=== PATIENT | female | born 1980 | race Caucasian/White ===

== ENCOUNTER → 2017-12-02 11:38 | Outpatient (CLI) | payer OTHER, SELFPAY ==
[2017-12-02 11:45] LABS: Mucous, Urine 0 SEEN /hpf (<or=2+); Red Blood Cells-Urine 0 SEEN /hpf (0-5); White Blood Cells 0 SEEN /hpf (0-5)
[2017-12-02 12:16] LABS: Absolute Lymphocyte Count 2.91 X10^3/ul (0.83-4.51); Absolute Neutrophil Count 4.6 X10^3/uL (2.0-7.7); Basophil# 0.02 X10^3/uL; Basophil% 0.2 % (0-1); Eosinophil# 0.11 X10^3/uL; Eosinophils% 1.3 % (0-5); Hematocrit 44.1 % (37-47); Lymphocyte # 2.91 X10^3/ul (4.0); Lymphocyte % 35.3 % (19-41); Mean Corpuscular Hgb 28.5 pg (27.0-32.0); Mean Corpuscular Volume 83.8 fL (81-99); Mean Platelet Vol. 9.5 fl (6.2-12.0); Monocyte# 0.59 X10^3/uL; Monocyte% 7.2 % (0-10); Neutrophil % 55.8 % (47-70); Platelet Count 288 K/mm3 (150-450); RBC Distribution Width CV 12.7 % (11.6-14.6); RBC Distribution Width SD 38.3 fl (35.1-43.9); Red Blood Count 5.26 M/mm3 (4.2-5.4); White Blood Count 8.3 K/mm3 (4.4-11.0)
[2017-12-02 12:17] LABS: POSITIVE COUNT NO; POSITIVE DIFFERENTIAL NO; POSITIVE MORPHOLOGY NO
[2017-12-02 12:20] LABS: Color, Urine Yellow (Yellow); Glucose, Dipstick Normal (Normal); Ketone-Dipstick Negative (Negative); Leukocyte Esterase-Dipstick 25 /ul (Negative); Nitrite-Dipstick Negative (Negative); Occult Blood-Urine Negative /ul (Negative); Protein-Dipstick Negative (Negative); Specific Gravity, Urine 1.005 (1.002-1.030); Urine Bilirubin Dipstick Negative (Negative); Urine Clarity Clear (Clear); Urine Urobilinogen Normal (Normal)
[2017-12-02 12:25] LABS: Squamous Epithelial Cells - UA 0-5 SEEN /hpf (5-10)
[2017-12-02 12:26] LABS: Bacteria 1+ /hpf (None Seen)
[2017-12-02 12:59] LABS: ALB/GLOB Ratio 0.8 RATIO (0.9-2.4); AST(SGOT) 24 U/L (15-37); Alanine Aminotransfer ALT/SGPT 61 U/L (13-56); Albumin, Serum 3.6 g/dL (3.2-5.0); Alkaline Phosphatase 56 U/L (45-117); Anion Gap 9 (5-15); BUN 14 mg/dL (7-18); BUN/Creat Ratio 18.7 RATIO (10-20); Calcium,Total 8.7 mg/dL (8.5-10.1); Chloride 103 mmol/L (98-107); Creatinine, Serum 0.75 mg/dL (0.55-1.02); EST Glomerular Filtration Rate 93 mL/min (>60); Est Glom Filt Rate - Afr Amer 113 mL/min (>60); Globulin 4.4 g/dL (2.2-4.2); Glucose 87 mg/dL (74-106); Potassium 3.6 mmol/L (3.5-5.1); Sodium Level 138 mmol/L (136-145); T4 Free Direct 1.16 ng/dL (0.76-1.46); Thyroid Stim Hormone (TSH) 1.08 uIU/mL (0.358-3.74)
[2017-12-03 11:55] LABS: T3 Total - Triiodothyronine 1.96 ng/mL (0.6-1.81)
== END ==
PROVIDERS: Family Provider Family Medicine; PCP Family Medicine; Visit Provider Family Medicine
DX: R53.83 Other fatigue (principal); R80.9 Proteinuria, unspecified
CPT/HCPCS: 36415; 80053; 81001; 84439; 84443; 84480; 85025

== ENCOUNTER → 2018-03-24 08:06 | Outpatient (CLI) | payer OTHER, SELFPAY ==
[2018-03-24 10:26] LABS: Free T3 2.7 pg/mL (2.18-3.98); T4 Free Direct 1.09 ng/dL (0.76-1.46); Thyroid Stim Hormone (TSH) 1.68 uIU/mL (0.358-3.74)
[2018-03-25 09:52] LABS: Vitamin B12 379 pg/mL (211-911)
[2018-03-25 11:19] LABS: Thyroid Peroxidase AB 288 IU/mL (0-34)
[2018-03-30 11:11] LABS: Vitamin D 1,25-Dihydroxy 28.8 pg/mL (19.9-79.3)
== END ==
PROVIDERS: Family Provider Family Medicine; PCP Family Medicine; Visit Provider Nurse Practitioner
DX: E07.9 Disorder of thyroid, unspecified (principal); R53.81 Other malaise; R53.83 Other fatigue
CPT/HCPCS: 36415; 82607; 82652; 84439; 84443; 84481; 86376

== ENCOUNTER 2018-03-29 14:30 | Outpatient (RCR) | payer OTHER, SELFPAY | END 2018-03-29 23:59 | LOC: NS 14:30 | PROVIDERS: Family Provider Family Medicine; PCP Family Medicine; Visit Provider Family Medicine | DX: E66.9 Obesity, unspecified (principal); Z68.39 Body mass index [BMI] 39.0-39.9, adult; Z71.3 Dietary counseling and surveillance | CPT/HCPCS: 97802; 97803 ==

== ENCOUNTER 2018-04-25 08:12 | Outpatient (RCR) | payer OTHER, SELFPAY | END 2018-04-29 23:59 | LOC: NS 08:12 | PROVIDERS: Family Provider Family Medicine; PCP Family Medicine; Visit Provider Family Medicine | DX: E66.9 Obesity, unspecified (principal); Z68.39 Body mass index [BMI] 39.0-39.9, adult; Z71.3 Dietary counseling and surveillance | CPT/HCPCS: 97803 ==

== ENCOUNTER 2018-06-20 11:27 | Outpatient (RCR) | payer OTHER, SELFPAY | END 2018-06-29 23:59 | LOC: NS 11:27 | PROVIDERS: Family Provider Family Medicine; PCP Family Medicine; Visit Provider Family Medicine | DX: E66.9 Obesity, unspecified (principal); Z68.39 Body mass index [BMI] 39.0-39.9, adult; Z71.3 Dietary counseling and surveillance | CPT/HCPCS: 97803 ==

== ENCOUNTER 2018-09-28 08:35 | Outpatient (RCR) | payer OTHER, SELFPAY | END 2018-09-28 23:59 | disposition home or self-care (01) | LOC: NS 08:35 | PROVIDERS: Family Provider Family Medicine; PCP Family Medicine; Visit Provider Family Medicine | DX: E66.9 Obesity, unspecified (principal); Z68.39 Body mass index [BMI] 39.0-39.9, adult; Z71.3 Dietary counseling and surveillance | CPT/HCPCS: 97803 ==

== ENCOUNTER → 2019-04-14 08:13 | Outpatient (CLI) | payer OTHER, SELFPAY ==
[2019-04-14 07:43] VITALS: BMI 42.4
[2019-04-14 12:34] LABS: Hematocrit 44.1 % (37-47); Hemoglobin 14.7 g/dL (12.0-15.0); Mean Corp Hgb Conc 33.3 g/dL (32-36); Mean Corpuscular Hgb 28.7 pg (27.0-32.0); Mean Corpuscular Volume 86.1 fL (81-99); Mean Platelet Vol. 10.1 fl (6.2-12.0); Platelet Count 370 K/mm3 (150-450); RBC Distribution Width CV 12.6 % (11.6-14.6); RBC Distribution Width SD 39.6 fl (35.1-43.9); Red Blood Count 5.12 M/mm3 (4.2-5.4); White Blood Count 8.3 K/mm3 (4.4-11.0)
[2019-04-14 12:35] LABS: Color, Urine Yellow (Yellow); Glucose, Dipstick Normal (Normal); Ketone-Dipstick Negative (Negative); Leukocyte Esterase-Dipstick Negative /ul (Negative); Nitrite-Dipstick Negative (Negative); Occult Blood-Urine Negative /ul (Negative); Protein-Dipstick Negative (Negative); Specific Gravity, Urine 1.005 (1.002-1.030); Urine Bilirubin Dipstick Negative (Negative); Urine Clarity Sl. Cloudy (Clear); Urine Urobilinogen Normal (Normal)
[2019-04-14 12:44] LABS: Bacteria 0 SEEN /hpf (None Seen); Mucous, Urine 0 SEEN /hpf (<or=2+); Red Blood Cells-Urine 0 SEEN /hpf (0-5); Squamous Epithelial Cells - UA 0-5 SEEN /hpf (5-10)
[2019-04-14 12:45] LABS: White Blood Cells 0 SEEN /hpf (0-5)
[2019-04-14 12:52] LABS: Hemoglobin A1c 5.2 % (4.2-6.3)
[2019-04-14 12:58] LABS: ALB/GLOB Ratio 0.9 RATIO (0.9-2.4); AST(SGOT) 16 U/L (15-37); Alanine Aminotransfer ALT/SGPT 53 U/L (13-56); Albumin, Serum 3.7 g/dL (3.2-5.0); Alkaline Phosphatase 53 U/L (45-117); Anion Gap 7 (5-15); BUN 12 mg/dL (7-18); BUN/Creat Ratio 15.3 RATIO (10-20); Chloride 107 mmol/L (98-107); Cholesterol 171 mg/dL (200); Creatinine, Serum 0.78 mg/dL (0.55-1.02); EST Glomerular Filtration Rate 88 mL/min (>60); Est Glom Filt Rate - Afr Amer 107 mL/min (>60); Globulin 4.3 g/dL (2.2-4.2); Glucose 98 mg/dL (74-106); High Density Lipoprotein 45 mg/dL; Potassium 4.1 mmol/L (3.5-5.1); Sodium Level 137 mmol/L (136-145); T4 Free Direct 1.28 ng/dL (0.76-1.46); Thyroid Stim Hormone (TSH) 1.82 uIU/mL (0.358-3.74); Triglycerides 147 mg/dL; Very Low Density Lipoprotein 29 mg/dL (5-40)
[2019-04-17 14:07] LABS: Thyroid Peroxidase AB 181 IU/mL (0-34)
[2019-04-18 08:40] LABS: Thyroglobulin Antibody < 1.0 IU/mL (0.0-0.9)
== END ==
PROVIDERS: Family Provider Family Medicine; PCP Family Medicine; Visit Provider Nurse Practitioner Family
DX: E07.9 Disorder of thyroid, unspecified (principal); E55.9 Vitamin D deficiency, unspecified
CPT/HCPCS: 36415; 80053; 80061; 81001; 82306; 83036; 84439; 84443; 85027; 86376; 86800

== ENCOUNTER → 2019-07-04 15:18 | Outpatient (CLI) | payer OTHER, SELFPAY ==
[2019-07-04 14:09] VITALS: BMI 42.4
[2019-07-04 19:19] LABS: Chlamydia Trachomatis by PCR Negative (Negative); Neisserai gonorrhoeae by PCR Negative (Negative); Probe Check PASS; Sample Adequacy Control PASS; Specimen Processing Control PASS
[2019-07-10 17:57] LABS: HPV APTIMA, High Risk Negative (Negative)
== END ==
PROVIDERS: Family Provider Family Medicine; PCP Family Medicine; Visit Provider Nurse Practitioner Women's Health
DX: Z12.4 Encounter for screening for malignant neoplasm of cervix (principal); Z11.3 Encounter for screening for infections with a predominantly sexual mode of transmission
CPT/HCPCS: 87491; 87591; 87624; 88175; G0145

== ENCOUNTER 2019-11-13 12:51 | Outpatient (RCR) | payer OTHER, SELFPAY ==
[2019-10-10 10:16] VITALS: BMI 42.4
[2019-10-25 10:15] VITALS: BMI 41.5
--- NOTE | 2019-11-13 14:15 | MASS.EVAL_ITS ---
Massage Therapy Evaluation: INITIAL EVALUATION /DATE:11/13/2019 PT NAME; RAJAT LAZAR : 1980 V#: [id number] REFERRING PHYS: DR. 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 MABRY. DR. MABRY DIAGNOSED HER WITH CERVICALALGIA MUSCLE SPASMS. SHE PRESENTS TODAY WITH SYMPTOMS OF A KNOT ON HER RIGHT SIDE NECK AND MUSCLE STRAIN IN RIGHT SHOULDER WITH ANY WEIGHT BARRING. THE PATIENT REPORTS THAT THE LUMP OF HER NECK HAS BEEN THERE FOR A FEW MONTHS BUT WITH NO PAIN. SHE RATES HER OVERALL HEALTH TO BE IN GOOD CONDITION WITH NO LIMITATIONS IN HER DAILY ACTIVITIES. OBJECTIVE: THE FIRST TREATMENT CONSISTED OF A MODERATE - DEEP TISSUE UPPER BODY MASSAGE. I FOCUSED ON THE ANTERIOR AND POSTERIOR OF THE NECK, TRAPEZIUM, LEVATOR, PECTORALIS, DELTOID, BICEP, RHOMBOIDS, PARASPINALS, AND LOW BACK. TRIGGER POINT THERAPY AND MONGOLIAN MASSAGE WERE PERFORMED. ASSESSMENT: THE PATIENTS MUSCLE TENSION AND ROPINESS WAS VERY HIGH. THE PATIENTS OVERALL STRESS LEVEL SEEMED LOW BESIDES WORKING ALOT OF HOURS. I FELT THE MAIN MUSCLE ISSUES WERE THE RIGHT LATERAL SCALENE, UPPER TRAP, RHOMBOIDS, AND UPPER ARM. THE PATIENT RELAXED WELL AND I FELT OVERALL THERE WAS GOOD RELEASE. I FEEL AT THIS TIME THE PATIENT IS A GOOD CANDIDATE FOR MASSOTHERAPY AT THIS TIME. PLAN: THE PLAN OF CARE WAS REVIEWED WITH THE PATIENT. THE PATIENT IS TO BE SEEN ON A REGULAR BASIS FOR A ONE HOUR SESSIONS OF MASSOTHERAPY.
--- NOTE | 2020-08-08 09:03 | MASS.DISCH ---
Massage Therapy Discharge Summary: DATE: 08/08/20 PT NAME: RAJAT LAZAR V#: [id number] : [birth year] REF PHYS: MABRY THE PATIENT WAS SEEN FOR A MASSOTHERAPY EVALUATION ON 11/13/19 WITH A DIAGNOSIS OF RIGHT ARM TENDONITIS. THE PATIENT WAS SEEN FOR ONE SESSION OF MASSAGE CONSISTING OF A UPPER BODY DEEP TISSUE MASSAGE. THE GOALS OF TREATMENT IS UNCERTAIN IF WERE MET. AT THIS TIME I AM DISCHARGING THE PATIENT FROM OUR CARE AT THE [facility]. AMITA SAMAYOA LMT
== END 2019-11-13 19:00 | disposition home or self-care (01) ==
LOC: MASS 12:51
PROVIDERS: PCP Family Medicine; Referring Provider Nurse Practitioner Family; Visit Provider Nurse Practitioner Family
DX: M62.838 Other muscle spasm (principal); M54.2 Cervicalgia
CPT/HCPCS: 97124

== ENCOUNTER → 2020-02-07 13:58 | Outpatient (CLI) | payer OTHER, SELFPAY ==
[2020-02-07 13:32] VITALS: BMI 41.5
[2020-02-07 15:34] LABS: Absolute Lymphocyte Count 2.79 X10^3/uL (0.83-4.51); Absolute Neutrophil Count 3.9 X10^3/uL (2.0-7.7); Basophil# 0.04 X10^3/uL; Basophil% 0.5 % (0-1); Eosinophil# 0.13 X10^3/uL; Eosinophils% 1.8 % (0-5); Hematocrit 41.5 % (37-47); Hemoglobin 13.9 g/dL (12.0-15.0); Lymphocyte # 2.79 X10^3/ul (4.0); Lymphocyte % 38.1 % (19-41); Mean Corp Hgb Conc 33.5 g/dL (32-36); Mean Corpuscular Hgb 28.4 pg (27.0-32.0); Mean Corpuscular Volume 84.9 fL (81-99); Mean Platelet Vol. 10.3 fl (6.2-12.0); Monocyte# 0.47 X10^3/uL; Monocyte% 6.4 % (0-10); NRBC Flagged by Analyzer 0 % (0-5); Neutrophil # 3.88 X10^3/uL (2.7-7.7); Neutrophil % 52.9 % (47-70); Platelet Count 315 K/mm3 (150-450); RBC Distribution Width CV 13.1 % (11.6-14.6); Red Blood Count 4.89 M/mm3 (4.2-5.4); White Blood Count 7.3 K/mm3 (4.4-11.0)
[2020-02-07 15:49] LABS: Free T3 2.7 pg/mL (2.18-3.98); T4 Free Direct 1.15 ng/dL (0.76-1.46); Thyroid Stim Hormone (TSH) 1.69 uIU/mL (0.358-3.74)
[2020-02-09 14:08] LABS: Thyroid Peroxidase AB 235 IU/mL (0-34)
[2020-02-10 11:30] LABS: Thyroglobulin Antibody < 1.0 IU/mL (0.0-0.9)
== END ==
PROVIDERS: PCP Family Medicine; Referring Provider Nurse Practitioner Family; Visit Provider Nurse Practitioner Family
DX: E07.9 Disorder of thyroid, unspecified (principal); R63.4 Abnormal weight loss
CPT/HCPCS: 36415; 84439; 84443; 84481; 85025; 86376; 86800

== ENCOUNTER 2020-03-15 08:00 | Outpatient (RCR) | payer OTHER, SELFPAY ==
[2019-10-10 10:16] VITALS: BMI 42.4
--- NOTE | 2019-10-17 10:08 | HP.PTEVAL ---
Patient's Visit Information RAJAT LAZAR is a 39 year old F referred to Physical Therapy by [facility] BryanC with a diagnosis of CERVICALALGIA,MUSCLE SPASMS. Date of Evaluation: 10/17/19 Physical Therapist: Tejinder Henry, PT, Cert MDT, OCS - Visit Plan Frequency: 2x /Week Duration: 4 Weeks Plan: PT INTERVENTIONS WITH MODALTIES BICEP TENDON,POSTURAL EX'S AND CERVICAL,SHOULDER STRENGTHENING - Subjective Findings: This 39 y/o female presents to physical therapy with cervicalagia.Patient noticed right shoulder pain 6 mnths ago , noticed lump in side of neck. Patient noticed pain right deltoid . Described strain. Aggravting factors pushing/pulling/lifting . Alleviating factors rest. Occassional parathesia in hands. Patient able to sleep good at night. Denies DENNEY/dizziness/nausea. Seen DR sumi staton. Patient symptoms affects ADL'S ,job demands ,and housework . Patient pain affects QOL and function. 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 NEURO: denies parathesia/tingling ,reflexes C5-6-7 3/3. PALAPTION: tender long head bicep,tender base of occiput. AROM: BUE WNL. MMT: BUE RTC 4/5 ,deltoid 4/5 no pain ,long head 4-/5 pain. CERVICAL ROM: flexion WFL,EXTENSION WFL,lateral flexion /rotaion/retraction WFL - Special Tests C/S Radiculapathy - Left Upper limb tension test: Negative C/S Radiculapathy - Right Upper limb tension test: Negative C/S Radiculapathy - Left Spurlings: Negative C/S Radiculapathy - Right Spurlings: Negative C/S Radiculapathy - Left Cervical distraction: Negative C/S Radiculapathy - Right Cervical distraction: Negative C/S Radiculapathy - Left Relief test: Negative C/S Radiculapathy - Right Relief test: Negative C/S Radiculapathy - Valsalva: Negative Sharp Vinod: Negative Vertebral Artery Test: Negative Alar Ligament Test: Negative Cervical Sitting: Protrusion - Mechanical Response: No effect Cervical Sitting: Protrusion - Symptoms During Testing: No effect Cervical Sitting: Protrusion - Symptoms After Testing: No effect Cervical Sitting: Retraction - Mechanical Response: No effect Cervical Sitting: Retraction - Symptoms During Testing: No effect Cervical Sitting: Retraction - Symptoms After Testing: No effect Cervical Sitting: Retraction-Extension - Mechanical Response: No effect Cerv Sitting: Retraction-Extension - Symptoms During Testing: No effect Cerv Sitting: Retraction-Extension - Symptoms After Testing: No effect Cervical Sitting: Sidebend Right - Mechanical Response: No effect Cervical Sitting: Sidebend Right - Symptoms During Testing: No effect Cervical Sitting: Sidebend Right - Symptoms After Testing: No effect Cervical Sitting: Sidebend Left - Mechanical Response: No effect Cervical Sitting: Sidebend Left - Symptoms During Testing: No effect Cervical Sitting: Sidebend Left - Symptoms After Testing: No effect Cervical Sitting: Rotation Right - Mechanical Response: No effect Cervical Sitting: Rotation Right - Symptoms During Testing: No effect Cervical Sitting: Rotation Right - Symptoms After Testing: No effect Cervical Sitting: Rotation Left - Mechanical Response: No effect Cervical Sitting: Rotation Left - Symptoms During Testing: No effect Cervical Sitting: Rotation Left - Symptoms After Testing: No effect Cervical Sitting: Flexion - Mechanical Response: No effect Cervical Sitting: Flexion - Symptoms During Testing: No effect R Shoulder Drop Sign - IS Test: Positive R Shoulder Empty Can - SS: Positive R Shoulder Belly Press - SupScap: Positive R Shoulder Neer - Impingement: Positive R Shoulder L[place]ig[place] Biju - Impingement: Positive - Goals Goal 1:: Indepoendant with HEP Goal Time Frame: 4-6 Weeks Goal 2:: Patient to improve posture for ADLS' Goal Time Frame: 4-6 Weeks Goal 3:: Patient to decrease pain in right shoulder bicep tendon by 60% or > to improve function. Goal Time Frame: 4-6 Weeks Goal 4:: Patient to improve ability with ADLS' and job demands without pain Goal Time Frame: 4-6 Weeks Goal 5:: Patient to improve quick dash by 5 points or > to improve QOL. Goal Time Frame: 4-6 Weeks - Rehabilitation Potential Physical Therapy Diagnosis: This patient has possible long head bicepital tendonitis wit pain wit testing,palaptopn .+ speeds test along with posture deficits ,appears shoulder pain not associated with neck pain Rehabilitation Potential: Good - Anticipated Interventions Patient/Client Instruction: Educate patient on: Condition, Plan of Care For the Purpose of:: To decrease pain, To increase ROM, To improve muscle performance and motor function, To improve ability to perform ADL's, To increase tolerance to activity/condition/position, To improve ability of physical actions for home/community/work/leisure, To improve health of tissue, To decrease soft tissue restriction, To reduce risk of recurrence, To improve ability to perform tasks related to life management Therapeutic Exercise to Include: Strength training, Postural training, Flexibilty training, Active ROM, Scapular Strength/Stabilization Comment: RTC/SHOULDER Thank you for the opportunity to evaluate your patient. For Medicare and Medicare HMO plans, please review the plan of care and approve it. It will need to be FAXED BACK to us at [phone] for Medicare purposes. For Medicare only, by signing this I certify the plan of care. Please let me know if there are questions or concerns regarding this plan of care. Physician Signature: Date:
--- NOTE | 2020-03-15 09:24 | HP.PTDCSUM_ITS ---
It has been my pleasure to treat RAJAT LAZAR referred by KATLIN Bryan, with the diagnosis of CERVICALALGIA,MUSCLE SPASMS for a total of 28 visit(s). Discharge Date: 03/15/20 Please see the following information for a summary of their discharge status. Subjective: Doing well .. Return to all ADLS' without pain and work demands Right Shoulder Pain Intensity (Out of 10): 0 % Improvement: 30 Objective/Function: AROM: WFL. MMT: RTC 5/5,DELTOID 4/5,SCAPULAR 4/5. -IMPINGE MENT Goal 1:: Indepoendant with HEP Goal Progress: Goal Met Goal 2:: Patient to improve posture for ADLS' Goal Progress: Goal Met Goal 3:: Patient to decrease pain in right shoulder bicep tendon by 60% or > to improve function. Goal Progress: Goal Met Goal 4:: Patient to improve ability with ADLS' and job demands without pain Goal Progress: Goal Met Goal 5:: Patient to improve quick dash by 5 points or > to improve QOL. Goal Progress: Goal Met Plan: D/C TO HEP Discharge Comments: [facility] If there are questions or concerns regarding this patient's physical therapy, please feel free to call me at [phone]. Thank you for the referral of this patient. Sincerely, Tejinder Henry PT, Cert MDT, OCS
== END 2020-03-15 19:00 | disposition home or self-care (01) ==
LOC: PT 08:00
PROVIDERS: PCP Family Medicine; Referring Provider Nurse Practitioner Family; Visit Provider Nurse Practitioner Family
DX: M62.838 Other muscle spasm (principal); M54.2 Cervicalgia
CPT/HCPCS: 97014; 97035; 97110; 97161; G0283

== ENCOUNTER → 2020-03-26 14:57 | Outpatient (CLI) | payer OTHER, SELFPAY ==
[2020-03-26 14:20] VITALS: BMI 41.5
[2020-03-26 17:02] LABS: Color, Urine Yellow (Yellow); Glucose, Dipstick Normal (Normal); Ketone-Dipstick 5 mg/dl (Negative); Leukocyte Esterase-Dipstick 25 /ul (Negative); Nitrite-Dipstick Negative (Negative); Occult Blood-Urine Negative /ul (Negative); Protein-Dipstick 15 mg/dl (Negative); Specific Gravity, Urine 1.025 (1.002-1.030); Urine Bilirubin Dipstick Negative (Negative); Urine Clarity Clear (Clear); Urine Urobilinogen 1 mg/dl (Normal)
[2020-03-26 17:08] LABS: Absolute Neutrophil Count 5.5 X10^3/uL (2.0-7.7); Basophil# 0.07 X10^3/uL; Basophil% 0.8 % (0-1); Eosinophil# 0.12 X10^3/uL; Eosinophils% 1.3 % (0-5); Hematocrit 42.3 % (37-47); Hemoglobin 13.8 g/dL (12.0-15.0); Mean Corp Hgb Conc 32.6 g/dL (32-36); Mean Corpuscular Hgb 28.5 pg (27.0-32.0); Mean Corpuscular Volume 87.4 fL (81-99); Mean Platelet Vol. 10.3 fl (6.2-12.0); Monocyte# 0.51 X10^3/uL; Monocyte% 5.7 % (0-10); NRBC Flagged by Analyzer 0 % (0-5); Platelet Count 313 K/mm3 (150-450); RBC Distribution Width CV 12.8 % (11.6-14.6); RBC Distribution Width SD 40.2 fl (35.1-43.9); Red Blood Count 4.84 M/mm3 (4.2-5.4)
[2020-03-26 17:15] LABS: Vitamin D,25 Hydroxy 38.1 ng/mL
[2020-03-26 17:20] LABS: ALB/GLOB Ratio 0.8 RATIO (0.9-2.4); AST(SGOT) 13 U/L (15-37); Alanine Aminotransfer ALT/SGPT 38 U/L (13-56); Albumin, Serum 3.5 g/dL (3.2-5.0); Alkaline Phosphatase 55 U/L (45-117); Anion Gap 7 (5-15); BUN 15 mg/dL (7-18); BUN/Creat Ratio 17.6 RATIO (10-20); Calcium,Total 8.6 mg/dL (8.5-10.1); Chloride 108 mmol/L (98-107); Cholesterol 176 mg/dL (200); Creatinine, Serum 0.85 mg/dL (0.55-1.02); EST Glomerular Filtration Rate 79 mL/min (>60); Est Glom Filt Rate - Afr Amer 96 mL/min (>60); Globulin 4.3 g/dL (2.2-4.2); Glucose 91 mg/dL (74-106); High Density Lipoprotein 45 mg/dL; Phosphorus 3.2 mg/dL (2.5-4.9); Potassium 3.8 mmol/L (3.5-5.1); Protein, Total 7.8 g/dL (6.4-8.2); Sodium Level 139 mmol/L (136-145); Triglycerides 139 mg/dL; Uric Acid 4.4 mg/dL (2.6-6.0)
[2020-03-26 17:21] LABS: LDH 155 U/L (84-246); Very Low Density Lipoprotein 28 mg/dL (5-40)
== END ==
PROVIDERS: Nurse Practitioner Family; PCP Family Medicine; Visit Provider Family Medicine
DX: E55.9 Vitamin D deficiency, unspecified (principal)
CPT/HCPCS: 82306

== ENCOUNTER → 2020-04-10 08:56 | Outpatient (CLI) | payer OTHER, SELFPAY ==
[2020-03-26 14:20] VITALS: BMI 41.5
[2020-04-10 08:58] LABS: Bacteria 0 SEEN /hpf (None Seen); Mucous, Urine 0 SEEN /hpf (<or=2+); Red Blood Cells-Urine 0 SEEN /hpf (0-5); White Blood Cells 0 SEEN /hpf (0-5)
[2020-04-10 12:30] LABS: Color, Urine Yellow (Yellow); Glucose, Dipstick Normal (Normal); Ketone-Dipstick Negative (Negative); Leukocyte Esterase-Dipstick Negative /ul (Negative); Nitrite-Dipstick Negative (Negative); Occult Blood-Urine Negative /ul (Negative); Protein-Dipstick Negative (Negative); Specific Gravity, Urine 1.005 (1.002-1.030); Urine Bilirubin Dipstick Negative (Negative); Urine Clarity Sl. Cloudy (Clear); Urine Urobilinogen Normal (Normal)
[2020-04-10 12:45] LABS: Squamous Epithelial Cells - UA 0-5 SEEN /hpf (5-10)
== END ==
PROVIDERS: PCP Family Medicine; Referring Provider Nurse Practitioner Family; Visit Provider Nurse Practitioner Family
DX: R80.9 Proteinuria, unspecified (principal)
CPT/HCPCS: 81001

== ENCOUNTER → 2020-07-16 09:09 | Outpatient (CLI) | payer OTHER, SELFPAY ==
[2020-07-16 08:39] VITALS: BMI 42.7
[2020-07-16 10:49] LABS: Thyroid Stim Hormone (TSH) 1.73 uIU/mL (0.358-3.74)
== END ==
PROVIDERS: PCP Family Medicine; Referring Provider Internal Medicine Endocrinology, Diabetes & Metabolism; Visit Provider Internal Medicine Endocrinology, Diabetes & Metabolism
DX: E03.8 Other specified hypothyroidism (principal); E06.3 Autoimmune thyroiditis
CPT/HCPCS: 36415; 84439; 84443

== ENCOUNTER → 2020-08-13 06:59 | Outpatient (CLI) | payer OTHER, SELFPAY ==
[2020-07-16 08:39] VITALS: BMI 42.7
--- NOTE | 2020-08-13 07:00 | BI_ITS ---
MAMMOGRAPHY - BILATERAL SCREENING REASON FOR EXAM: Female, 40 years old. Routine annual screening examination. PERTINENT HISTORY: Non-contributory. TECHNIQUE: Digital bilateral breast zuleima (3D mammographic acquisition) in the CC and MLO projections. 2-D mediolateral oblique (MLO) and craniocaudad (CC) views of both breasts were obtained. CAD: Full Field Digital Mammography with Computer Added Detection was performed. COMPARISON: Comparison is made with prior study dated 06/21/2013. FINDINGS: Breast Composition: The breasts are heterogeneously dense, which may obscure small masses. There are no dominant masses or suspicious calcifications. No other significant abnormalities are identified. There has been no significant change since the prior study. BI/SCREEN MAMM (CAD) W/ZULEIMA BILAT IMPRESSION: Stable bilateral screening mammogram. Yearly follow-up mammogram recommended. (A) ASSESSMENT CATEGORY: BIRADS Category 1: Negative. A letter regarding these results will be sent to the patient by the facility within 30 days. Approximately 10% of breast cancers are not detected by mammography. A normal mammogram should not delay biopsy of a clinically suspicious abnormality. [id number] Electronically Signed: Colten Byrd, at 8:20 EST , Service support ,
== END ==
PROVIDERS: PCP Family Medicine; Referring Provider Nurse Practitioner Women's Health; Visit Provider Nurse Practitioner Women's Health
DX: Z12.31 Encounter for screening mammogram for malignant neoplasm of breast (principal)
CPT/HCPCS: 77063; 77067

== ENCOUNTER 2020-09-05 11:43 | Outpatient (RCR) | payer OTHER, SELFPAY ==
[2020-07-16 08:39] VITALS: BMI 42.7
== END 2020-09-29 23:59 ==
LOC: LABSPEC 11:43
PROVIDERS: PCP Family Medicine; Referring Provider Family Medicine Geriatric Medicine; Visit Provider Family Medicine Geriatric Medicine
DX: Z03.818 Encounter for observation for suspected exposure to other biological agents ruled out (principal)
CPT/HCPCS: 87426

== ENCOUNTER 2020-09-14 08:45 | Outpatient (CLI) | payer OTHER, SELFPAY ==
[2020-09-14 09:00] VITALS: BP 137/85; PULSE 98; RESP 18; TEMP 37.7; O2SAT 100
[2020-09-14] MEDS: 0.9% Saline Lock 10 ML Syringe IV (09:07)
[2020-09-14 09:14] VITALS: BMI 41.9
[2020-09-14 09:35] VITALS: BP 127/71; PULSE 94; RESP 18; TEMP 37; O2SAT 99
[2020-09-14 10:06] VITALS: BP 118/70; PULSE 83; RESP 18; TEMP 37; O2SAT 100
[2020-09-14 10:25] VITALS: BP 104/63; PULSE 75; RESP 18; TEMP 37; O2SAT 99
[2020-09-14 10:53] VITALS: BP 118/78; PULSE 77; RESP 18; TEMP 36.7; O2SAT 99
[2020-09-14 11:26] VITALS: BP 114/70; PULSE 78; RESP 18; TEMP 36.9; O2SAT 100
== END 2020-09-14 11:28 | disposition home or self-care (01) ==
LOC: MS2OUT 08:47 → MS2 08:47
PROVIDERS: PCP Family Medicine; Referring Provider Nurse Practitioner Acute Care; Visit Provider Nurse Practitioner Acute Care
DX: U07.1 COVID-19 (principal)
CPT/HCPCS: J7050; M0239; Q0239; A4216

== ENCOUNTER → 2021-07-08 16:18 | Outpatient (CLI) | payer OTHER, SELFPAY ==
[2021-07-08 18:23] LABS: T4 Free Direct 1.34 ng/dL (0.76-1.46); Thyroid Stim Hormone (TSH) 1.44 uIU/mL (0.358-3.74)
== END ==
PROVIDERS: PCP Family Medicine; Referring Provider Internal Medicine Endocrinology, Diabetes & Metabolism; Visit Provider Internal Medicine Endocrinology, Diabetes & Metabolism
DX: E03.8 Other specified hypothyroidism (principal); E06.3 Autoimmune thyroiditis
CPT/HCPCS: 36415; 84439; 84443

== ENCOUNTER → 2021-08-21 08:23 | Outpatient (CLI) | payer OTHER, SELFPAY ==
--- NOTE | 2021-08-21 08:25 | BI_ITS ---
MAMMOGRAPHY - BILATERAL SCREENING REASON FOR EXAM: Female, 41 years old. Routine annual screening examination. PERTINENT HISTORY: Grandmother with breast cancer. TECHNIQUE: Digital bilateral breast zuleima (3D mammographic acquisition) in the CC and MLO projections. 2-D mediolateral oblique (MLO) and craniocaudad (CC) views of both breasts were obtained. CAD: Full Field Digital Mammography with Computer Added Detection was performed. COMPARISON: Comparison is made with prior study dated 08/13/2020 and 06/21/2013. FINDINGS: Breast Composition: The breasts are heterogeneously dense, which may obscure small masses. There are no dominant masses or suspicious calcifications. Stable small benign-appearing bilateral axillary lymph nodes. No other significant abnormalities are identified. There has been no significant change since the prior study. BI/SCRN MAMM (CAD)W/ZULEIMA BILAT IMPRESSION: Stable bilateral screening mammogram. Yearly follow-up mammogram recommended. (A) ASSESSMENT CATEGORY: BIRADS Category 2: Benign. A letter regarding these results will be sent to the patient by the facility within 30 days. Approximately 10% of breast cancers are not detected by mammography. A normal mammogram should not delay biopsy of a clinically suspicious abnormality. [id number] Electronically Signed: Colten Byrd MD at 9:23 EST , Service support ,
== END ==
PROVIDERS: PCP Family Medicine; Referring Provider Nurse Practitioner Women's Health; Visit Provider Nurse Practitioner Women's Health
DX: Z12.31 Encounter for screening mammogram for malignant neoplasm of breast (principal); Z80.3 Family history of malignant neoplasm of breast
CPT/HCPCS: 77063; 77067

== ENCOUNTER → 2022-04-28 | Outpatient (CLI) | payer OTHER, SELFPAY ==
[2022-04-28 12:29] LABS: Erythrocyte Sedimentation Rate 20 mm/hr (0-30)
[2022-04-28 12:44] LABS: Vitamin B12 347 pg/mL (211-911); Vitamin D,25 Hydroxy 42.7 ng/mL
[2022-04-28 12:46] LABS: CRP 6.89 mg/L (0.0-3.0); Rheumatoid Factor < 10.0 IU/mL (<15); T4 Free Direct 1.27 ng/dL (0.76-1.46); Thyroid Stim Hormone (TSH) 1.04 uIU/mL (0.358-3.74)
[2022-04-30 17:36] LABS: ANTINUCLEAR ANTIBODIES DIRECT Negative (Negative)
== END | disposition home or self-care (01) ==
LOC: BIMLAB 09:31
PROVIDERS: PCP Family Medicine; Visit Provider Nurse Practitioner Family
DX: M25.50 Pain in unspecified joint (principal); E88.81 Metabolic syndrome and other insulin resistance; R53.83 Other fatigue; E03.8 Other specified hypothyroidism; E06.3 Autoimmune thyroiditis
CPT/HCPCS: 82306; 82607; 84439; 84443; 85652; 86038; 86140; 86225; 86235; 86431

== ENCOUNTER → 2022-07-28 | Outpatient (CLI) | payer OTHER, SELFPAY ==
[2022-07-30 22:06] LABS: Chlamydia By Nucleic Acid AMP Negative (Negative)
[2022-07-30 22:25] LABS: Gonococcus By Nucleic Acid AMP Negative (Negative)
== END | disposition home or self-care (01) ==
PROVIDERS: PCP Family Medicine; Referring Provider Nurse Practitioner Women's Health; Visit Provider Nurse Practitioner Women's Health
DX: Z11.3 Encounter for screening for infections with a predominantly sexual mode of transmission (principal)
CPT/HCPCS: 87491; 87591

== ENCOUNTER → 2022-08-05 | Outpatient (CLI) | payer OTHER, SELFPAY ==
--- NOTE | 2022-08-05 15:44 | BI_ITS ---
MAMMOGRAPHY - BILATERAL SCREENING REASON FOR EXAM: Female, 42 years old. Routine annual screening examination. PERTINENT HISTORY: Non-contributory. TECHNIQUE: Digital bilateral breast zuleima (3D mammographic acquisition) in the CC and MLO projections. 2-D mediolateral oblique (MLO) and craniocaudad (CC) views of both breasts were obtained. CAD: Full Field Digital Mammography with Computer Added Detection was performed. COMPARISON: Comparison is made with prior study 08/21/2021 and 08/13/2020. FINDINGS: Breast Composition: The breasts are heterogeneously dense, which may obscure small masses. There are no dominant masses or suspicious calcifications. Stable small benign-appearing bilateral axillary lymph nodes. No other significant abnormalities are identified. There has been no significant change since the prior study. BI/SCRN MAMM (CAD)W/ZULEIMA BILAT IMPRESSION: Stable bilateral screening mammogram. Yearly follow-up mammogram recommended. (A) ASSESSMENT CATEGORY: BIRADS Category 2: Benign. A letter regarding these results will be sent to the patient by the facility within 30 days. Approximately 10% of breast cancers are not detected by mammography. A normal mammogram should not delay biopsy of a clinically suspicious abnormality. [id number] Electronically Signed: Colten Byrd MD at 8:16 EST ,
== END | disposition home or self-care (01) ==
LOC: OPBI 15:43
PROVIDERS: PCP Family Medicine; Referring Provider Nurse Practitioner Women's Health; Visit Provider Nurse Practitioner Women's Health
DX: Z12.31 Encounter for screening mammogram for malignant neoplasm of breast (principal)
CPT/HCPCS: 77063; 77067

== ENCOUNTER → 2023-09-03 | Outpatient (CLI) | payer OTHER, SELFPAY ==
--- OUTSIDE RECORDS SUMMARY | 2023-09-03 07:41 | XMS RPT_ITS | CCD ---
Author Name Unknown Address [address] [place] [address] Organization [facility] Results Test Name Value Interpretation Reference Range Facil ity Summary Purpose Family History No Family History Records Found Advance Directives No Advanced Directives Records Found Additional Source Comments INFORMATION SOURCE (unrecogn ized section and content) FOR RECORDS PERTAINING TO PATIENTS WHO ARE OR HAVE BEEN ENROLLED IN A CHEMICAL DEPENDENCY/SUBSTANCEABUSE PROGRAM, SOME INFORMATION MAY BE OMITTED. This clinical summary was aggregated from multiple sources. Caution should be exercised in using it in the provision of clinical care. This summary normalizes information from multiple sources, and as a consequence, information in this document may materially change the coding, format and clinical context of patient data. In addition, data may be omitted in some cases. CLINICAL DECISIONS SHOULD BE BASED ON THE PRIMARY CLINICAL RECORDS. [employer]. provides no warranty or guarantee of the accuracy or completeness of information in this document.
[2023-09-03 08:40] LABS: Vitamin D,25 Hydroxy 48.6 ng/mL
[2023-09-03 08:53] LABS: ALB/GLOB Ratio 0.9 RATIO (0.9-2.4); AST(SGOT) 9 U/L (15-37); Alanine Aminotransfer ALT/SGPT 33 U/L (13-56); Albumin, Serum 3.6 g/dL (3.2-5.0); Alkaline Phosphatase 57 U/L (45-117); Anion Gap 5 (5-15); BUN 14 mg/dL (7-18); BUN/Creat Ratio 18.7 RATIO (10-20); Calcium,Total 9.2 mg/dL (8.5-10.1); Chloride 108 mmol/L (98-107); Cholesterol 180 mg/dL (200); Creatinine, Serum 0.75 mg/dL (0.55-1.02); EST Glomerular Filtration Rate 91 mL/min (>60); Est Glom Filt Rate - Afr Amer 110 mL/min (>60); Globulin 3.8 g/dL (2.2-4.2); Glucose 99 mg/dL (74-106); High Density Lipoprotein 51 mg/dL; Potassium 3.9 mmol/L (3.5-5.1); Protein, Total 7.4 g/dL (6.4-8.2); Sodium Level 138 mmol/L (136-145); T4 Free Direct 1.41 ng/dL (0.76-1.46); Thyroid Stim Hormone (TSH) 3.48 uIU/mL (0.358-3.74); Triglycerides 95 mg/dL; Very Low Density Lipoprotein 19 mg/dL (5-40)
== END | disposition home or self-care (01) ==
LOC: LAB 07:39
PROVIDERS: PCP Family Medicine; Referring Provider Internal Medicine Endocrinology, Diabetes & Metabolism; Visit Provider Internal Medicine Endocrinology, Diabetes & Metabolism
DX: E55.9 Vitamin D deficiency, unspecified (principal); E03.8 Other specified hypothyroidism; E06.3 Autoimmune thyroiditis
CPT/HCPCS: 36415; 80053; 80061; 82306; 84439; 84443

== ENCOUNTER → 2023-09-08 | Outpatient (CLI) | payer OTHER, SELFPAY ==
--- OUTSIDE RECORDS SUMMARY | 2023-09-08 11:33 | XMS RPT_ITS | CCD ---
Author Name Unknown Address [address] [place] [address] Organization [facility] Results Test Name Value Interpretation [...] BE BASED ON THE PRIMARY CLINICAL RECORDS. [employer]. provides no warranty or guarantee of the accuracy or completeness of information in this document.
[2023-09-12 21:06] LABS: HPV APTIMA, High Risk Negative (Negative)
== END | disposition home or self-care (01) ==
LOC: LABSPEC 11:11
PROVIDERS: Referring Provider Nurse Practitioner Women's Health; Visit Provider Nurse Practitioner Women's Health
DX: Z12.4 Encounter for screening for malignant neoplasm of cervix (principal)
CPT/HCPCS: 87624; 88175; G0145

== ENCOUNTER → 2023-09-13 | Outpatient (CLI) | payer OTHER, SELFPAY ==
--- NOTE | 2023-09-13 12:45 | BI_ITS ---
MAMMOGRAPHY - BILATERAL SCREENING REASON FOR EXAM: Female, 43 years old. Routine annual screening examination. PERTINENT HISTORY: Grandmother with breast cancer. TECHNIQUE: Digital bilateral breast zuleima (3D mammographic acquisition) in the CC and MLO projections. 2-D mediolateral oblique (MLO) and craniocaudad (CC) views of both breasts were obtained. CAD: Full Field Digital Mammography with Computer Added Detection was performed. COMPARISON: Comparison is made with prior study dated August 05, 2022 and August 01, 2020. FINDINGS: Breast Composition: The breasts are heterogeneously dense, which may obscure small masses. There are no dominant masses or suspicious calcifications. No other significant abnormalities are identified. Stable small benign-appearing bilateral axillary lymph nodes. BI/SCRN MAMM (CAD)W/ZULEIMA BILAT IMPRESSION: Stable bilateral screening mammogram. Yearly follow-up mammogram recommended. (A) ASSESSMENT CATEGORY: BIRADS Category 2: Benign. A letter regarding these results will be sent to the patient by the facility within 30 days. Approximately 10% of breast cancers are not detected by mammography. A normal mammogram should not delay biopsy of a clinically suspicious abnormality. [id number] Electronically Signed: Colten Byrd MD at 13:25 EST ,
--- OUTSIDE RECORDS SUMMARY | 2023-09-13 13:08 | XMS RPT_ITS | CCD ---
Author Name Unknown Address [address] [place] [address] Organization [facility] Results Test Name Value Interpretation [...] BE BASED ON THE PRIMARY CLINICAL RECORDS. [employer]. provides no warranty or guarantee of the accuracy or completeness of information in this document.
== END | disposition home or self-care (01) ==
LOC: OPBI 12:45
PROVIDERS: PCP Family Medicine; Referring Provider Nurse Practitioner Women's Health; Visit Provider Nurse Practitioner Women's Health
DX: Z12.31 Encounter for screening mammogram for malignant neoplasm of breast (principal)
CPT/HCPCS: 77063; 77067

== ENCOUNTER → 2024-01-19 | Outpatient (CLI) | payer OTHER, SELFPAY ==
[2024-01-19 08:08] LABS: T4 Free Direct 1.67 ng/dL (0.76-1.46); Thyroid Stim Hormone (TSH) 1.74 uIU/mL (0.358-3.74)
== END | disposition home or self-care (01) ==
LOC: LAB 06:29
PROVIDERS: PCP Family Medicine; Referring Provider Nurse Practitioner Family; Visit Provider Nurse Practitioner Family
DX: E06.3 Autoimmune thyroiditis (principal)
CPT/HCPCS: 36415; 84439; 84443

== ENCOUNTER → 2024-05-05 | Outpatient (CLI) | payer OTHER, SELFPAY | END | disposition home or self-care (01) | LOC: LABSPEC 10:21 | PROVIDERS: PCP Family Medicine; Referring Provider Physician Assistant; Visit Provider Physician Assistant | DX: R82.90 Unspecified abnormal findings in urine (principal) | CPT/HCPCS: 87086 ==

== ENCOUNTER → 2024-09-01 | Outpatient (CLI) | payer OTHER, SELFPAY ==
[2024-09-01 10:42] LABS: T4 Free Direct 1.25 ng/dL (0.76-1.46)
== END | disposition home or self-care (01) ==
LOC: LAB 09:56
PROVIDERS: PCP Family Medicine; Referring Provider Internal Medicine Endocrinology, Diabetes & Metabolism; Visit Provider Internal Medicine Endocrinology, Diabetes & Metabolism
DX: E03.8 Other specified hypothyroidism (principal); E06.3 Autoimmune thyroiditis
CPT/HCPCS: 36415; 84439; 84443

== ENCOUNTER → 2024-09-04 | Outpatient (CLI) | payer OTHER, SELFPAY ==
--- NOTE | 2024-09-04 08:24 | US_ITS ---
STUDY: ABDOMINAL ULTRASOUND - RIGHT UPPER QUADRANT REASON FOR VISIT: Female, 44 years old upper abdominal pain TECHNIQUE: Ultrasound evaluation of the right upper quadrant was performed with real-time and static jama-scale imaging. TECHNICAL QUALITY: Limited. Examination limited by bowel gas. COMPARISON: None. FINDINGS: Liver: The liver measures 15.2 cm. There is increased echogenicity consistent with fatty infiltration. The bile ducts are within normal limits. There is hepatic color flow. The direction of portal flow is hepatopetal. There is no demonstrated mass lesion. Gallbladder: Normal distended gallbladder. The gallbladder wall measures 4.7 mm. There is a negative sonographic Rodriguez''s sign. There is no pericholecystic fluid. There are multiple echogenic structures within the gallbladder, consistent with multiple gallstones. Common Bile Duct (C.B.D.): The common bile duct measures 2.4 mm. Pancreas: Visualized pancreas is sonographically normal Right Kidney: Normal size of the right kidney. The right kidney measures 10.6 x 5.5 x 4.2 cm. Normal renal cortex. The right cortex measures 1.1 cm. There is no demonstrated renal mass or cyst. There is no right hydronephrosis. US/Abdomen Limited IMPRESSION: Multiple gallstones noted within the gallbladder largest measures 2.3 cm. There is associated gallbladder wall thickening. However there is no cholecystic fluid or biliary dilatation. Please correlate with lab and physical findings. If these are equivocal, recommend further evaluation with HIDA scan Fatty liver, no discrete lesion Electronically Signed: Teodoro Li MD at 12:36 EST ,
== END | disposition home or self-care (01) ==
PROVIDERS: PCP Family Medicine; Referring Provider Family Medicine; Visit Provider Physician Assistant
DX: R10.9 Unspecified abdominal pain (principal)
CPT/HCPCS: 76705

== ENCOUNTER → 2024-09-15 | Outpatient (CLI) | payer OTHER, SELFPAY ==
--- NOTE | 2024-09-15 08:04 | BI_ITS ---
MAMMOGRAPHY - BILATERAL SCREENING REASON FOR EXAM: Female, 44 years old. Routine annual screening examination. PERTINENT HISTORY: Grandmother with breast cancer. TECHNIQUE: Digital bilateral breast zuleima (3D mammographic acquisition) in the CC and MLO projections. 2-D mediolateral oblique (MLO) and craniocaudad (CC) views of both breasts were obtained. CAD: Full Field Digital Mammography with Computer Added Detection was performed. COMPARISON: Comparison is made with prior examination dated March 13, 2024 and August 05, 2022 FINDINGS: Breast Composition: The breasts are heterogeneously dense, which may obscure small masses. There are no dominant masses or suspicious calcifications. Stable small fat-containing bilateral axillary lymph nodes. No other significant abnormalities are identified. There has been no significant change since the prior study. BI/SCRN MAMM (CAD)W/ZULEIMA BILAT IMPRESSION: Stable bilateral screening mammogram. Yearly follow-up mammogram recommended. (A) ASSESSMENT CATEGORY: BIRADS Category 2: Benign. A letter regarding these results will be sent to the patient by the facility within 30 days. Approximately 10% of breast cancers are not detected by mammography. A normal mammogram should not delay biopsy of a clinically suspicious abnormality. [id number] Electronically Signed: Colten Byrd MD at 8:45 EST ,
== END | disposition home or self-care (01) ==
LOC: OPBI 08:04
PROVIDERS: PCP Family Medicine; Referring Provider Nurse Practitioner Women's Health; Visit Provider Nurse Practitioner Women's Health
DX: Z12.31 Encounter for screening mammogram for malignant neoplasm of breast (principal)

== ENCOUNTER 2025-02-05 07:49 | Day surgery (SDC) | payer OTHER, SELFPAY ==
--- NOTE | 2025-01-23 12:28 | EKG12_ITS ---
Test Reason : PREOP Blood Pressure : */* mmHG Vent. Rate : 84 BPM Atrial Rate : 84 BPM P-R Int : 152 ms QRS Dur : 80 ms QT Int : 382 ms P-R-T Axes : 57 62 23 degrees QTcB Int : 451 ms Normal sinus rhythm Nonspecific ST and T wave abnormality Abnormal ECG Confirmed by Gómez Olsen ([id number]), editor book DAVE BECERRA ([id number]) on 01/29/2025 12:52:02 PM Referred By: Luis Eduardo Cobb Confirmed By: Gómez Olsen
--- NOTE | 2025-01-24 16:44 | PAT.ANE_ITS ---
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 When Was Last Pacemaker Check QUESTION #4 FULL TEXT: You/Your Family Experience fever (hyperthermia) with Anesthesia Last Oral Intake Last Oral intake: Last Oral Intake NPO since Meds taken in AM with sips of water? Meds patient instructed to take am of surgery PONV PONV - maintenance construction helper: PONV - maintenance construction helper Female Yes 01/23/25 10:08 HX of Motion Sickness No 01/23/25 10:08 HX of N/V After Surgery No 01/23/25 10:08 Non-Smoker Yes 01/23/25 10:08 Duration of Surgery greater Yes 01/23/25 10:08 than 60 minutes Number of Risk Factors 3 01/23/25 10:08 PONV Score Moderate Risk 01/23/25 10:08 Height & Weight Height & Weight: Anesthesia: Height & Weight Height 5 ft 5 in 11/15/24 09:38 Respiratory Assessment Respiratory Assessment - maintenance construction helper: Respiratory Tract Infection Hx - maintenance construction helper Hx Respiratory Tract Infection No 01/23/25 10:08 STOP Sleep Apnea STOP Sleep Apnea - maintenance construction helper: STOP Sleep Apnea - maintenance construction helper Hx Hypertension No 01/23/25 10:08 Hx Sleep Apnea No 01/23/25 10:08 CPAP BIPAP Do you snore loudly (louder No 01/23/25 10:08 than talking or can be heard Do you often feel tired/ No 01/23/25 10:08 fatigued/ sleepy during daytime? Has anyone observed you stop No 01/23/25 10:08 breathing during sleep? STOP Results Negative 01/23/25 10:08 QUESTION #5 FULL TEXT : Do you snore loudly (louder than talking or can be heard through closed doors)? 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 Specify any problems Hx of Preganancy in last 3 No 01/23/25 10:08 Months Nurse Filling Out Transfusion DSCHRIBER 01/23/25 10:08 & Questions: Date: 01/23/25 01/23/25 10:08 Time: 10:09 01/23/25 10:08 Patient unable to answer at this time (ie. confused, unrespo /Reproduction History /Reproductive History - maintenance construction helper: /Reproductive Hx- maintenance construction helper Hx Now No 01/23/25 10:08 Gestational Age (in weeks): EDC: Hx Hx Para Hx Section SAB No 01/23/25 10:08 Active Medications Active Medications: Current Medications Generic Name Dose Route Start Last Admin Trade Name Freq PRN Reason Stop Dose Admin Indocyanine Green 3.75 mg/ N/A 1.5 mls @ 999 mls/hr 02/05/25 09:30 IV 02/05/25 09:31 PREOP [facility] Medical History (Updated 01/23/25 @ 10:12 by Esther Narvaez) Alcohol use Thyroid disease Gastric reflux Non-smoker Shortness of breath on exertion Fatigue Metabolic syndrome Polyarthralgia History of Sandeep thyroiditis Asthma Home Medications ?Medication ?Instructions ?Recorded ?Last Taken ?Type fluticasone propionate 50 1 spray intranasal DAILY Unknown History mcg/actuation nasal spray,suspension (Flonase Allergy Relief) albuterol sulfate 90 mcg/actuation 2 puff inhalation Q 6H PRN 05/05/24 Unknown Rx aerosol inhaler shortness of breath or wheez ing #8.5 grams cholecalciferol (vitamin D3) 1,250 50,000 unit PO QWEE K #12 caps 05/05/24 Unknown Rx mcg (50,000 unit) capsule levothyroxine 100 mcg tablet 100 mcg PO .qd, 1.[address]96 09/01/24 Unknown Rx tabs famotidine 20 mg tablet 20 mg PO QDAY #90 tabs 10/18 Unknown Rx tirzepatide 5 mg/0.5 mL 5 mg subcut QWEEK 10/18/24 0 12/26/24 History subcutaneous pen injector (David) Allergy/AdvReac Type Severity Reaction Status Date / Time penicillin G Allergy Mild rash Verified 01/23/25 10:05 Family History Mother Cancer multiple myloma Father Cancer lung Grandfather Cancer brain Hypertension Grandmother Breast cancer Thyroid disorder Hypertension Afib Surgical History History of tonsillectomy Social History Smoking Status: Never smoker alcohol intake: never substance use type: does not use caffeine: Yes what type of physical activity do you participate in: weight training frequency: 3-4 times per week seatbelt use: always do you feel safe at home: Yes 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 Normal sinus rhythm. Nonspecific ST and T wave abnormality. Recommendation Anesthesia Recommendation Anesthesia recommendation: OPTIMIZED for anesthesia
[2025-02-05] VITALS (13 sets, daily range): BP systolic 104–133; BP diastolic 70–85; PULSE 56–88; RESP 14–18; TEMP 36.1–36.6; O2SAT 97–100; BMI 39.8
[2025-02-05 08:20] LABS: Internal QC Validated? YES +Cl - CLEAR BKGD; Pregnancy, Urine Negative Negative
[2025-02-05] MEDS: Lactated Ringers 1,000 ML 15 ML IV (08:25)
[2025-02-05] MEDS: INDOCYANINE GREEN 3.75 MG in Syringe 1.5 ML 999 MG IV (08:25)
--- NOTE | 2025-02-05 08:40 | PCM.PRE.AN2 ---
ASA Classification* ASA Classification ASA Classification: 3 Assessment & Plan Anesthesia* Anesthesia Assessment Anesthesia Assessment: Discussed sedation and/or anesthesia options, risks, benefits, and alternatives with patient/parents/legal guardian/POA. Questions invited. The patient/parents/legal guardian/POA seems to understand and agrees to proceed with anesthesia plan. Reviewed the physical assessment, medical history, allergy history and patient home medications list prior to surgery/procedure/anesthetic and documented any changes. Performed airway and anesthesia risk assessments. Anesthesia Type Anesthesia Type: General Anesthesia Focused Assessment* Temperature: 97.8 F Pulse Rate: 76 Blood Pressure: 128/84 Respiratory Rate: 16 Pulse Ox: 98 Airway Assessment Mouth opens: >3 cm Mallampati Score: II Labs Anesthesia Preop lab: CBC WBC 7.8 K/mm3 (4.4-11.0) 04/24/24 07:57 04/24/24 RBC 4.53 M/mm3 (4.2-5.4) 04/24/24 07:57 04/24/24 Hgb 13.2 g/dL (12.0-15.0) 04/24/24 07:57 04/24/24 Hct 39.6 % (37-47) 04/24/24 07:57 04/24/24 Plt Count 302 K/mm3 (150-450) 04/24/24 07:57 04/24/24 CHEMISTRY Potassium 3.9 mmol/L (3.5-5.1) 04/24/24 07:57 04/24/24 Sodium 139 mmol/L (136-145) 04/24/24 07:57 04/24/24 Phosphorus 3.3 mg/dL (2.5-4.9) 04/24/24 07:57 04/24/24 BUN 12 mg/dL (7-18) 04/24/24 07:57 04/24/24 Creatinine 0.70 mg/dL (0.55-1.02) 04/24/24 07:57 04/24/24 Glucose 93 mg/dL (74-106) 04/24/24 07:57 04/24/24 TSH 1.490 uIU/mL (0.300-4.200) 01/23/25 12:59 01/23/25 COAG Urine Test Negative Negative 02/05/25 08:11 02/05/25 Pre-Assessment Diagnosis/Proposed Procedure Planned Operative Procedure(s): ROBOTIC CHOLEY WITH POSS GRAMS Anesthesia History 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 When Was Last Pacemaker Check QUESTION #4 FULL TEXT: You/Your Family Experience fever (hyperthermia) with Anesthesia Last Oral Intake Last Oral intake: Last Oral Intake NPO since 22:00 02/05/25 08:29 Meds taken in AM with sips of water? Meds patient instructed to take am of surgery PONV PONV - it infrastructure project manager: PONV - it infrastructure project manager Female Yes 01/23/25 10:08 HX of Motion Sickness No 01/23/25 10:08 HX of N/V After Surgery No 01/23/25 10:08 Non-Smoker Yes 01/23/25 10:08 Duration of Surgery greater Yes 01/23/25 10:08 than 60 minutes Number of Risk Factors 3 01/23/25 10:08 PONV Score Moderate Risk 01/23/25 10:08 Height & Weight Height & Weight: Anesthesia: Height & Weight Height 5 ft 6 in 02/05/25 08:29 Weight: 111.9 kg 02/05/25 08:29 Body Mass Index (BMI) 39.8 02/05/25 08:29 Respiratory Assessment Respiratory Assessment - it infrastructure project manager: Respiratory Tract Infection Hx - it infrastructure project manager Hx Respiratory Tract Infection No 01/23/25 10:08 STOP Sleep Apnea STOP Sleep Apnea - it infrastructure project manager: STOP Sleep Apnea - it infrastructure project manager Hx Hypertension No 01/23/25 10:08 Hx Sleep Apnea No 01/23/25 10:08 CPAP BIPAP Do you snore loudly (louder No 01/23/25 10:08 than talking or can be heard Do you often feel tired/ No 01/23/25 10:08 fatigued/ sleepy during daytime? Has anyone observed you stop No 01/23/25 10:08 breathing during sleep? STOP Results Negative 01/23/25 10:08 QUESTION #5 FULL TEXT : Do you snore loudly (louder than talking or can be heard through closed doors)? 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 Specify any problems Hx of Preganancy in last 3 No 01/23/25 10:08 Months Nurse Filling Out Transfusion DSCHRIBER 01/23/25 10:08 & Questions: Date: 01/23/25 01/23/25 10:08 Time: 10:09 01/23/25 10:08 Patient unable to answer at this time (ie. confused, unrespo /Reproduction History /Reproductive History - it infrastructure project manager: /Reproductive Hx- it infrastructure project manager Hx Now No 01/23/25 10:08 Gestational Age (in weeks): EDC: Hx Hx Para Hx Section SAB No 01/23/25 10:08 Active Medications Active Medications: Current Medications Generic Name Dose Route Start Last Admin Trade Name Freq PRN Reason Stop Dose Admin Indocyanine Green 3.75 mg/ N/A 1.5 mls @ 999 mls/hr 02/05/25 09:30 02/05/25 08:25 IV 02/05/25 09:31 999 mls/hr PREOP ONE Administration Clindamycin Phosphate 900 mg in 50 mls @ 75 mls/hr 02/05/25 09:30 Cleocin IV 02/05/25 10:09 INTRAOP ONE Lactated Ringer's 1,000 mls @ 15 mls/hr 02/05/25 08:00 02/05/25 08:25 IV 15 mls/hr .Q48H POPPY Administration [facility] Medical History Alcohol use Thyroid disease Gastric reflux Non-smoker Shortness of breath on exertion Fatigue Metabolic syndrome Polyarthralgia History of Sandeep thyroiditis Asthma Home Medications ?Medication ?Instructions ?Recorded ?Last Taken ?Type fluticasone propionate 50 1 spray intranasal DAILY 04/14/19 Unknown History mcg/actuation nasal spray,suspension (Flonase Allergy Relief) albuterol sulfate 90 mcg/actuation 2 puff inhalation Q6H PRN 05/05/24 Unknown Rx aerosol inhaler shortness of breath or wheezing #8.5 grams cholecalciferol (vitamin D3) 1,250 50,000 unit PO QWEEK #12 caps 05/05/24 Unknown Rx mcg (50,000 unit) capsule levothyroxine 100 mcg tablet 100 mcg PO .qd, 1.5 on #96 09/01/24 Unknown Rx tabs famotidine 20 mg tablet 20 mg PO QDAY #90 tabs 10/18/24 Unknown Rx tirzepatide 5 mg/0.5 mL 5 mg subcut QWEEK 10/18/24 12/26/24 History subcutaneous pen injector (Mounjaro) Allergy/AdvReac Type Severity Reaction Status Date / Time penicillin G Allergy Mild rash Verified 02/05/25 08:19 Family History Mother Cancer multiple myloma Father Cancer lung Grandfather Cancer brain Hypertension Grandmother Breast cancer Thyroid disorder Hypertension Afib Surgical History History of tonsillectomy Social History Smoking Status: Never smoker alcohol intake: never substance use type: does not use caffeine: Yes what type of physical activity do you participate in: weight training frequency: 3-4 times per week seatbelt use: always do you feel safe at home: Yes 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
--- NOTE | 2025-02-05 08:48 | PCM.HP.BLA ---
History and Physical Date of Admission: 02/05/25 Intake Vital Signs 10/18/2510:23 11/15/2508:38 Height 5 ft 5 in 5 ft 5 in Weight: 238 lb 2 oz 233 lb BMI 39.6 38.7 BP 128/76 H 127/89 H Blood Pressure Location Lt brachial Rt brachial Position Sitting Sitting Respiration 16 18 Pulse 112 H 78 Pulse Source Monitor Monitor Temp 96 F L Temp Source Temporal Pulse Oximetry (%) 97 98 Oxygen Delivery Method room air room air Intake Visit Reasons: GALLSTONES Chief Complaint: gallstones Is patient in pain?: Yes Allergies penicillin G Allergy (Mild, Verified 11/15/24 09:39) rash Medications ?Medication ?Instructions ?Recorded ?Confirmed ?Type fluticasone propionate 50 1 spray intranasal DAILY 04/14/19 11/15/24 History mcg/actuation nasal spray,suspension (Flonase Allergy Relief) albuterol sulfate 90 mcg/actuation 2 puff inhalation Q6H PRN 05/05/24 11/15/24 Rx aerosol inhaler shortness of breath or wheezing #8.5 grams cholecalciferol (vitamin D3) 1,250 50,000 unit PO QWEEK #12 caps 05/05/24 11/15/24 Rx mcg (50,000 unit) capsule levothyroxine 100 mcg tablet 100 mcg PO .qd, 1.5 on #96 09/01/24 11/15/24 Rx tabs famotidine 20 mg tablet 20 mg PO QDAY #90 tabs 10/18/24 11/15/24 Rx tirzepatide 5 mg/0.5 mL 5 mg subcut QWEEK 10/18/24 11/15/24 History subcutaneous pen injector (Mounjaro) [facility] Medical History Fatigue Metabolic syndrome Polyarthralgia Abnormal Pap smear of cervix History of Sandeep thyroiditis H/O urinary tract infection Seasonal allergies Asthma Surgical History History of tonsillectomy Family History Mother Cancer multiple mylomaFather Cancer lungGrandfather Cancer brain HypertensionGrandmother Breast cancer Thyroid disorder Hypertension Afib Social History Smoking Status: Never smoker alcohol intake: never substance use type: does not use caffeine: Yes what type of physical activity do you participate in: weight training frequency: 3-4 times per week seatbelt use: always do you feel safe at home: Yes 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 She has been having small attacks. Her last attack she had pain radiating to the right side of her back into her epigastric region. She has not had an episode in a few weeks. She denies nausea or vomiting. ROS General General: No weight change, appetite, fatigue, colon cancer, breast cancer or weakness HEENT HEENT: No difficulty swallowing, eye injury, eye surgery, swollen glands or hoarseness Endo Endocrine: Yes thyroid disease; No diabetes mellitus, thyroid cancer, Hair loss, heat intolerance or cold intolerance Skin Skin: No rash or changing moles Musc Musculoskeletal: No back problems, arthritis, rheumatoid arthritis, gout or joint pain Cardio Cardiovascular: No murmur, pacemaker, heart disease, atrial fibrillation, high blood pressure, heart attack, heart stent, palpitations, shortness of breath with exertion or chest pain Psych Psychiatric: No depression, anxiety or hearing voices Resp Respiratory: No shortness of breath, No sleep apnea, No cough, No COPD, Yes asthma, No emphysema and No wheezing Gastro Gastrointestinal: No abdominal pain, Yes nausea or vomiting, No diarrhea, Yes constipation, No blood in stool, No acid reflux, No hemorrhoids, No ulcers, Yes gallbladder problem and No black,tarry stools Barrera Hematologic: No blood thinners, No blood disorders, No bleeding, No anemia and No blood clots Neuro Neurologic: No system reviewed and no additional complaints, except as documented, No as per HPI, No abnormal gait, No abnormal hearing, No abnormal movements, No abnormal speech, No behavioral changes, No burning sensations, No confusion, No convulsions, No disequilibrium, No dizziness, No localized weakness, No frequent falls, No headache(s), No lack of coordination, No loss of vision, No memory loss, No numbness, No other visual disturbances, No radicular pain, No restless legs, No sensory deficit, No syncope, No tingling, No tremor(s), No weakness and No other Exam Const General: cooperative Orientation: alert and oriented x3 HENMT Head: normal to inspection Neck Neck: normal visual inspection and full ROM Chest Chest palpation & inspection: normal inspection of the chest Resp Effort & Inspection: normal respiratory effort Auscultation: clear to auscultation bilaterally Cardio Rate: regular rate Rhythm: regular rhythm GI Inspection: non-distended Palpation: soft and nontender Skin General: no rashes or lesions noted Neuro General: patient alert and patient oriented x3 Extrem General: full ROM Psych Appearance: grossly normal Mental Status: mental status grossly normal Assessment and Plan Assessment and Plan (1) Gall bladder stones: Status: Acute Plan: Patient has gallstones and I recommended robotic assisted laparoscopic cholecystectomy. I discussed the procedure in detail with the patient. I discussed the risks, benefits, and alternatives of the procedure. I discussed the risks including but not limited to bleeding, infection, injury to surrounding organs such as the liver, bile duct, bowels. I did discuss the possibility of having to convert to an open procedure as well as the possibility that if any injuries occurred this may necessitate further surgery at a tertiary care center. Luis Eduardo Cobb MD Pager: [facility] [address] [place] [address], [address] [place] [address] Office: I have examined the patient and the H&P has been reviewed. There are no clinical changes since date of exam.
--- NOTE | 2025-02-05 09:30 | GALL_PTH ---
PATIENT: RAJAT LAZAR LOC: [facility] [place] U#:[id number] AGE/SX: 44/F ROOM: RE02/05/[address]: Dr. Luis Eduardo Cobb MD : 1980 BED: DIS: 02/05/2025 SPEC #: [id number] RECD: 02/05/25 11:21 STATUS: SANDY SUMMER #: [id number] APRIL: 02/05/25 09:[address]: Luis Eduardo Cobb DEPT: SURGICAL PATHOLOGY RECD BY: Kandace Brody ENTERED: 02/05/25 12:06 SP TYPE: BOZENA VERDE DR: Dr. Remy Sánchez, DO Tissues: A - Gallbladder, NOS Procedures: Surgery Specimen Level III HEADER OPERATION: Robotic cholecystectomy PRE-OP DIAGNOSIS: Gallbladder stones TISSUE SUBMITTED: A- Gallbladder MICROSCOPIC DIAGNOSIS A. Gallbladder, robotic assisted cholecystectomy: * Cholecystolithiasis * Cholesterolosis * Chronic cholecystitis MICROSCOPIC DESCRIPTION Slides are reviewed. GROSS DESCRIPTION A. Received in formalin labeled with the patient's name and date of . Designated as gallbladder is a 9.4 x 3.1 x 2.5 cm mirza-green intact gallbladder with attached, patent cystic duct (inked black, shaved). A 0.6 cm lymph node is present. The gallbladder contains green tenacious bile and few, yellow and bosselated biliary calculi, 0.4 cm to 2.4 cm. The mucosa is green and granular with moderate cholesterolosis and a maximum wall thickness of 0.2 cm. Survey Operations Director sections are submitted in 1 cassette. [facility] [place] 02/06/2025 CPT:88941
[2025-02-05] MEDS: Clindamycin 900 MG/50 ML BAG 75 MG IV (10:00)
[2025-02-05] MEDS: Bupivacaine Mpf 0.5% 30 ML VIAL (10:25)
--- NOTE | 2025-02-05 11:10 | OP.PCM_ITS ---
Operative Report (Standard) Operative Information Date of Procedure: 02/05/25 Pre-Operative Diagnosis: Cholelithiasis Post-Operative Diagnosis: Cholelithiasis Surgery/Procedure Performed: Robotic assisted laparoscopic cholecystectomy housecleaner floor: Yes Director Hardware: Danita Davis Tasks completed by learning and development assistant: Opening, Closing and Retracting Type of Anesthesia: General/Regional RN Documented Start/Stop Times: Operation Date: 02/05/25 09:30 Case Time Into Pre-Op 02/05/25 07:55 Anesthesia Start 02/05/25 09:50 Into Room 02/05/25 09:50 Procedure Start 02/05/25 10:11 Procedure End 02/05/25 10:52 Anesthesia End 02/05/25 10:59 Out of Room 02/05/25 10:59 Into Recovery 02/05/25 11:04 Procedure Start Time: 10:11 Procedure Stop Time: 10:52 Select all DRAINS/GRAFTS/IMPLANTS that apply: None Estimated Blood Loss: 5 Specimen collected: Yes Description of specimen(s) removed: Gallbladder Description of surgery: Patient was brought to the operating room and general anesthesia was induced. The abdomen was prepped and draped in usual sterile fashion. Midline incision was made superior to the umbilicus and deepened to the fascia. The fascia was grasped and a Veress needle was placed into the abdomen. A drop test was performed. The abdomen was insufflated to 15 mmHg. The Veress needle was removed and a port was placed. The abdomen was inspected for injuries and there were none. Patient was placed in reverse Trendelenburg position. Under direct visualization a right upper quadrant port was placed and 2 left upper quadrant ports were placed. The robot was then docked. The gallbladder was grasped and elevated to the right upper quadrant. The infundibulum was located and retracted laterally. ICG was used to help localize the cystic duct. The cystic duct was bluntly dissected free. It was then triply clipped and divided. The cystic artery was then identified posterior to the cystic duct. It was triply clipped and divided. Next the gallbladder was taken off of the gallbladder fossa using electrocautery. There was good hemostasis with no leaking bile. The gallbladder was placed into a retraction bag. Next the robot was undocked and the gallbladder was removed through the periumbilical incision. Next using a Gopi Mayer needle and laparoscopic guidance the midline fascia was closed with an 0 Vicryl suture. Next all of the skin incisions were injected with local anesthetic and closed with interrupted 4 Monocryl sutures. Steri-Strips and bandages were applied. Patient was awoken and taken to PACU in stable condition. Surgical Findings: Large gallstone Complications Complications: No Admit VTE Documentation VTE Mechan Device Prophylaxis: SCD's
--- NOTE | 2025-02-05 11:10 | PCM.POST.ANE ---
Anesthesia: Postop Eval I Current Vital Signs Temperature: 97 F Pulse Rate: 88 Blood Pressure: 133/85 Respiratory Rate: 16 Pulse Ox: 100 Oxygen Delivery Method: Simple Mask Oxygen Flow Rate (L/min): 6 Assessment Airway patent: Yes Spontaneous unlabored respirations: Yes Mental status: Awake and Calm nausea: No Vomiting: No Anesthesia Complication: No Fluid Hydration Crystalloid volume administer (ml): 1,000 Total IV fluid infused: 1,000 Progress Note Anesthesia document: Postop Eval 1 completed: Yes
--- NOTE | 2025-02-05 11:14 | SUR.PHASEI ---
PATIENT IS VERY HOT AND MOVING WELL, SO WE TOOK OFF THE SCD SLEEVES FOR NOW.
--- NOTE | 2025-02-05 11:22 | DCINST_ITS ---
Discharge Instructions Procedure Gallbladder Diet Discharge Diet: Light diet - advance as tolerated Activity Discharge Activity: May Not Drive (for 2-3 days or while taking narcotic pain medications.) and - (Do not drive, work heavy equipment or sign legal documents for 24 hours.) May shower in (days): 1 Lifting Restrictions: 20 lbs for 2 weeks Additional Activity Instructions:: Pain medication may cause nausea. You should typically eat light foods as you take your pain medications. Pain medication may also cause constipation. If this is a problem for you, please discuss with your doctor. Dressing / Incision Call your doctor if your incision/area has: Continuous Slow Oozing, Sudden Increased Bleeding, Increased Pain/ Swelling, Increased Redness and Foul Smelling Discharge Call your doctor if you observe: Fever of 101 or Higher Suture Line Care: Avoid Pulling/Pushing and Avoid Pinching/Bending Remove Dressing in: 2 days Additional Dressing/Incision Instructions:: Leave operative bandaids on for 2 days. When you remove dressing, leave Steri-Strips on until your follow-up appointment, or until the Steri-Strips fall off on their own. Follow Up Care Please Follow Up With: Luis Eduardo Cobb MD When: Please call to schedule 2 week follow up appointment. [phone] Test Results: Test results from this visit will be discussed in further detail at your follow- up appointment, if applicable. Discharge Plan Admission Attending Provider: Luis Eduardo Cobb Primary Care Provider: Remy Sánchez Instructions Print Language: Citizen Of [place] Discharge Orders/Prescriptions Prescriptions: New oxycodone 5 mg Tablet 5 - 10 mg PO Q4H PRN PRN (Reason: Pain Score 4-10) 5 Days Qty: 20 0RF No Action fluticasone propionate [Flonase Allergy Relief] 50 mcg/actuation spray,suspension 1 spray INTRANASAL DAILY levothyroxine 100 mcg tablet 100 mcg PO .qd, 1.5 on Qty: 96 3RF cholecalciferol (vitamin D3) 1,250 mcg (50,000 unit) capsule 50,000 unit PO QWEEK Qty: 12 3RF albuterol sulfate 90 mcg/actuation HFA aerosol inhaler 2 puff INHALATION Q6H PRN (Reason: shortness of breath or wheezing) Qty: 8.5 1RF Mounjaro 5 mg/0.5 mL pen injector 5 mg subcut QWEEK famotidine 20 mg tablet 20 mg PO QDAY Qty: 90 1RF Other Ambulatory Orders: ,Urine (Routine) Timeframe: [id number] Facility: [facility] - Location: Laboratory Ordered By: Dr. Kwame Lee Referrals / Follow Up: Remy Sánchez DO [Primary Care Provider] - Disposition Disposition (needs filled in before D/C Order can be placed): Home, Self Care
--- NOTE | 2025-02-05 11:40 | POSTOPAN2_ITS ---
Anesthesia Postop Eval I Sum Postop Eval Completion status Anesthesia document: Postop Eval 1 completed: Yes Anesthesia Postop Eval I Summary Anesthesia Postop Eval I Summary: Anesthesia Postop Eval I: Assessment Summary Airway patent Yes 02/05/25 11:11 [email or web address] Spontaneous unlabored Yes 02/05/25 11:11 FRIT [email or web address] respirations Mental status Awake,Calm 02/05/25 11:11 [email or web address] nausea No 02/05/25 11:11 [email or web address] Vomiting No 02/05/25 11:11 FRIT MIXERMARBELLA Anesthesia Postop Eval I: Fluid Summary Crystalloid volume administer 1,000 02/05/25 11:11 [email or web address] (ml) Colloids volume administered ( ml) Blood Product volume administered (ml) Total IV fluid infused 1,000 02/05/25 11:11 [email or web address] Anesthesia Postop Eval I: Summary Notes Anesthesia Complication No 02/05/25 11:11 [email or web address] Anesthesia Complication Comment: Post-operative progress note Anesthesia: Postop Eval II Evaluation Mental status: Awake Pain Level: 0 nausea: No Vomiting: No
--- NOTE | 2025-02-05 11:40 | PCM.POSTANE2 ---
Anesthesia Postop Eval I Sum Postop Eval Completion status Anesthesia document: Postop Eval 1 completed: Yes Anesthesia Postop Eval I Summary Anesthesia Postop Eval I Summary: Anesthesia Postop Eval I: Assessment Summary Airway patent Yes 02/05/25 11:11 INFORMATION [email or web address] Spontaneous unlabored Yes 02/05/25 11:11 INFORMATION MANAGERMARBELLA respirations Mental status Awake,Calm 02/05/25 11:11 INFORMATION [email or web address] nausea No 02/05/25 11:11 INFORMATION [email or web address] Vomiting No 02/05/25 11:11 INFORMATION MANAGERMARBELLA Anesthesia Postop Eval I: Fluid Summary Crystalloid volume administer 1,000 02/05/25 11:11 INFORMATION [email or web address] (ml) Colloids volume administered ( ml) Blood Product volume administered (ml) Total IV fluid infused 1,000 02/05/25 11:11 [email or web address] Anesthesia Postop Eval I: Summary Notes Anesthesia Complication No 02/05/25 11:11 [email or web address] Anesthesia Complication Comment: Post-operative progress note Anesthesia: Postop Eval II Evaluation Mental status: Awake Pain Level: 0 nausea: No Vomiting: No
[2025-02-05] MEDS: Acetaminophen 325 MG Tablet 650 MG PO (13:08)
== END 2025-02-05 13:47 | disposition home or self-care (01) ==
LOC: SDC 07:52 → AC 07:52
PROVIDERS: Anesthesiology; PCP Family Medicine; Referring Provider Surgery; Visit Provider Surgery
PROC: 0FT44ZZ Resection of Gallbladder, Percutaneous Endoscopic Approach (ICD-10-PCS; CPT 47562; principal; 2025-02-05 09:10)
DX: K80.10 Calculus of gallbladder with chronic cholecystitis without obstruction (principal); J45.909 Unspecified asthma, uncomplicated; Z79.51 Long term (current) use of inhaled steroids; Z79.899 Other long term (current) drug therapy
CPT/HCPCS: 47562; S2900; 00790; 36415; 81025; 84443; 88304; 93005; J2405